=== PATIENT | female | born 1990 | race Caucasian/White ===

== ENCOUNTER 2016-08-18 17:18 | Emergency (ER) | payer OTHER ==
--- NOTE | 2016-08-18 19:09 | ED ---
ENT HPI - General Chief complaint: ENT Stated complaint: sore throat Time Seen by Provider: 08/18/16 18:13 Source: patient, RN notes reviewed Mode of arrival: ambulatory Limitations: no limitations - History of Present Illness Initial comments: Patient is a 25-year-old female with chief complaint of sore throat for the past 3 days. She reports that her throat is very swollen and difficult to swallow.. She denies any significant cough. She states that she's taken some tpyo-upx-clxvixl cough syrup and mouthwash to help with the pain however it has not helped. She denies any Motrin or Tylenol. Patient denies any recent fever , chills, shortness of breath, chest pain, back pain, abdominal pain, nausea vomiting, numbness or tingling, dysuria or hematuria, constipation or diarrhea, headaches or visual changes, or any other current symptoms - Related Data Previous Rx's Medication Instructions Recorded Amoxicillin 500 mg PO Q12HR #20 cap 08/18/16 Allergies Allergy/AdvReac Type Severity Reaction Status Date / Time Fish Containing Products Allergy Swelling Verified 08/18/16 17:56 [Fish] Review of Systems ROS Statement: Those systems with pertinent positive or pertinent negative responses have been documented in the HPI. ROS Other: All systems not noted in ROS Statement are negative. Past Medical History Past Medical History: No Reported History History of Any Multi-Drug Resistant Organisms: None Reported Additional Past Surgical History / Comment(s): kidney/ bladder surgeryureteral surgery, D&C Past Anesthesia/Blood Transfusion Reactions: No Reported Reaction Past Psychological History: No Psychological Hx Reported Smoking Status: Current every day smoker Past Alcohol Use History: None Reported Past Drug Use History: None Reported - Past Family History Mother Family Medical History: No Reported History General Exam - General Exam Comments Initial Comments: Well-appearing 25-year-old female. No acute distress. Limitations: no limitations General appearance: alert, in no apparent distress Head exam: Present: atraumatic, normocephalic, normal inspection Eye exam: Present: normal appearance, PERRL, EOMI. Absent: scleral icterus, conjunctival injection, periorbital swelling ENT exam: Present: normal exam, mucous membranes moist. Absent: normal oropharynx (Erythematous beefy red tonsils. Evidence of exudate.) Neck exam: Present: normal inspection. Absent: tenderness, meningismus, lymphadenopathy Respiratory exam: Present: normal lung sounds bilaterally. Absent: respiratory distress, wheezes, rales, rhonchi, stridor Cardiovascular Exam: Present: regular rate, normal rhythm, normal heart sounds. Absent: systolic murmur, diastolic murmur, rubs, gallop, clicks GI/Abdominal exam: Present: soft, normal bowel sounds. Absent: distended, tenderness, guarding, rebound, rigid Extremities exam: Present: normal inspection, full ROM, normal capillary refill. Absent: tenderness, pedal edema, joint swelling, calf tenderness Back exam: Present: normal inspection Neurological exam: Present: alert, oriented X3, CN II-XII intact Psychiatric exam: Present: normal affect, normal mood Skin exam: Present: warm, dry, intact, normal color. Absent: rash Course Vital Signs 08/18/16 08/18/16 17:54 19:33 Temperature 99.3 F 99.6 F Pulse Rate 99 95 Respiratory 16 18 Rate Blood Pressure 125/70 116/86 O2 Sat by Pulse 99 98 Oximetry Medical Decision Making - Medical Decision Making Patient is a 25-year-old female. With chief complaint of sore throat for 3 days. Patient had a positive rapid strep screen. Patient was given an initial dose of amoxicillin in the emergency room. Patient was given a prescription as well. Motrin Tylenol for fevers. Return parameters were discussed. Patient understands treatment plan will comply. - Lab Data Lab Results 08/18/16 Range/Units 18:57 Group A Strep Rapid Positive A (Negative) Disposition Clinical Impression: Strep pharyngitis Disposition: HOME SELF-CARE Condition: Good Instructions: Strep Throat (ED) Additional Instructions: Rest, increase fluids and complete her antibiotic prescription. Follow-up with primary care provider if symptoms continue persist. Return to the EC if any signs or symptoms occur. Prescriptions: Amoxicillin 500 mg PO Q12HR #20 cap Referrals: Brenda Garcia MD [REFERRING] - 1-2 days Time of Disposition: 19:20
[2016-08-18] MEDS ORDERED: AMOXICILLIN 500MG STARTER PACK 3 CAP BTL PO STA (19:19)
[2016-08-18 19:34] VITALS: BP 116/86; PULSE 95; RESP 18; TEMP 99.6
== END 2016-08-18 19:32 | disposition home or self-care (01) ==
LOC: EC 17:18
DX: J02.0 Streptococcal pharyngitis (principal); Z91.013 Allergy to seafood; F17.200 Nicotine dependence, unspecified, uncomplicated
CPT/HCPCS: 87430; 99283

== ENCOUNTER 2017-07-05 19:28 | Emergency (ER) | payer OTHER ==
[2017-07-05] MEDS ORDERED: ACETAMINOPHEN TAB 325 MG TAB PO STA (20:32)
[2017-07-05 21:29] LABS: Appearance,Urine Cloudy (Clear); Bilirubin,Urine Negative (Negative); Blood,Urine Negative (Negative); Color,Urine Yellow; Glucose,Urine (UA) Negative (Negative); Ketones,Urine Negative (Negative); Leukocyte Esterase,Urine Negative (Negative); Mucus,Urine Rare /hpf; Nitrite,Urine Negative (Negative); PH, Urine 5.5 (5.0-8.0); Protein,Urine Trace (Negative); RBC,Urine 1 /hpf (0-5); Specific Gravity,Urine 1.014 (1.001-1.035); Squamous Epithelial Cell,Urine 3 /hpf (0-4); Urobilinogen,Urine <2.0 mg/dL (<2.0); WBC,Urine 5 /hpf (0-5)
--- NOTE | 2017-07-05 22:13 | US ---
EXAMINATION TYPE: US OB <=14 wks transvag DATE OF EXAM: 07/05/2017 COMPARISON: 05/09/2017 CLINICAL HISTORY: Pain. Pain EXAM PERFORMED: Transvaginal (TV) and Transabdominal (TA) EXAM MEASUREMENTS: GESTATIONAL AGE / DATING Physician Established: Not yet established Dates by LMP: LMP unknown Dates by First Scan: (7 weeks/3 days) EDC: 12/23/2017 Dates by Current Scan for: (6 weeks/5 days) MATERNAL ANATOMY Uterus: 11.9 x 5.1 x 5.5 cm Right Ovary: 3.0 x 2.3 x 2.7 cm Left Ovary: 3.5 x 1.7 x 2.0 cm Post CDS / Adnexa: wnl Presence of free fluid: no GESTATION / SURVEY CRL: 0.79 (6 weeks/5 days) Heart Rate: No heart tones Rhythm: None IUP: Demise Beta HcG (if available): Not available at this time Patient was seen back on 05/09/2017 for an ultrasound at 7 wks 3days and no heart tones were se en. Patient has had no further exams or lab work done. Exam today is showing an irregular shaped gest ational sac with a pole measuring 6wks 5 days with no heart tones. IMPRESSION: There is intrauterine demise at approximately 7 weeks gestation. No significant change compared to 05/09/2017 exam. 1.5 cm left ovarian cyst.
--- NOTE | 2017-07-05 22:34 | ED ---
General Adult HPI - General Chief complaint: Recheck/Abnormal Lab/Rx Stated complaint: Headache x3 Time Seen by Provider: 07/05/17 20:05 Source: patient Mode of arrival: ambulatory Limitations: no limitations - History of Present Illness Initial comments: 26-year-old female patient presents to the emergency department today requesting ultrasound. The patient states that at the beginning of May she was seen here, had an ultrasound and was diagnosed with demise. She had an ultrasound performed that showed no heart tones, she was educated regarding miscarriage and what to expect. Patient states that she still has not passed any tissue. She denies any vaginal bleeding, vaginal discharge , or abdominal cramping since having the ultrasound at the beginning of May. She is concerned that maybe the ultrasound was either wrong or that she is retaining the products. She denies any current pain, fever, chills , nausea, vomiting. Denies any difficulty with urination or bowel movements. States that she has been trying to follow-up with OB for further evaluation. She states that she did call Dr. Faith's office today and was instructed to obtain labs. She states is still have not made an appointment for her. Patient denies any recent rash, shortness breath, chest pain, diarrhea, constipation, back pain, numbness, tingling, dizziness, weakness, hematuria, dysuria, urinary urgency, urinary frequency, visual changes, or any other complaints. - Related Data Home Medications Medication Instructions Recorded Confirmed No Known Home Medications [No 05/09/17 07/05/17 Known Home Medications] Allergies Allergy/AdvReac Type Severity Reaction Status Date / Time Fish Containing Products Allergy Swelling Verified 07/05/17 20:15 [Fish] Review of Systems ROS Statement: Those systems with pertinent positive or pertinent negative responses have been documented in the HPI. ROS Other: All systems not noted in ROS Statement are negative. Past Medical History Past Medical History: No Reported History History of Any Multi-Drug Resistant Organisms: None Reported Past Surgical History: Bladder Surgery Additional Past Surgical History / Comment(s): kidney/ bladder surgeryureteral surgery, D&C Past Anesthesia/Blood Transfusion Reactions: No Reported Reaction Past Psychological History: No Psychological Hx Reported Smoking Status: Current some day smoker Past Alcohol Use History: None Reported Past Drug Use History: None Reported - Past Family History Mother Family Medical History: No Reported History General Exam Limitations: no limitations General appearance: alert, in no apparent distress, other (Physical well- developed, well-nourished adult female patient in no acute distress. Vital signs upon presentation are temperature 98.5F, pulse 97, respirations 18, blood pressure 119/76, pulse ox 97% on room air.) Eye exam: Present: normal appearance, PERRL, EOMI. Absent: scleral icterus, conjunctival injection, periorbital swelling ENT exam: Present: normal exam, normal oropharynx, mucous membranes moist Respiratory exam: Present: normal lung sounds bilaterally. Absent: respiratory distress, wheezes, rales, rhonchi, stridor Cardiovascular Exam: Present: regular rate, normal rhythm, normal heart sounds. Absent: systolic murmur, diastolic murmur, rubs, gallop, clicks GI/Abdominal exam: Present: soft, normal bowel sounds. Absent: distended, tenderness, guarding, rebound, rigid Neurological exam: Present: alert, oriented X3, CN II-XII intact Psychiatric exam: Present: normal affect, normal mood Skin exam: Present: warm, dry, intact, normal color. Absent: rash Course Vital Signs 07/05/17 07/05/17 19:47 23:34 Temperature 98.5 F 98 F Pulse Rate 97 82 Respiratory 18 18 Rate Blood Pressure 119/76 128/78 O2 Sat by Pulse 97 97 Oximetry Medical Decision Making - Medical Decision Making 26-year-old female patient presented to the emergency department today for concern for retained products of conception. Physical examination is unremarkable. Abdomen is soft and nontender. She is urinating and having bowel movements without difficulty. Patient was initially told at the beginning of May that she was miscarrying and was to expect passage of blood and cramping. She had none of those things and presented here due to this. Repeat ultrasound was obtained and did show an irregular gestational sac with no heart tones. HCG level is 40. Urinalysis was negative for any acute abnormalities. Patient has been in contact with Dr. Faith's office. As she is not having any symptoms at this time, is afebrile, and stable we will discharge her home to follow-up with him outpatient. I did instruct her to call his office tomorrow for an appointment. She is instructed to return here immediately for any new, worsening, or concerning symptoms. She verbalizes understanding and agrees with this plan. - Lab Data Lab Results 07/05/17 07/05/17 Range/Units 21:14 22:29 HCG, Quant 40.1 mIU/mL Urine Color Yellow Urine Appearance Cloudy H (Clear) Urine pH 5.5 (5.0-8.0) Ur Specific [place] 1.014 (1.001-1.035) Urine Protein Trace H (Negative) Urine Glucose (UA) Negative (Negative) Urine Ketones Negative (Negative) Urine Blood Negative (Negative) Urine Nitrite Negative (Negative) Urine Bilirubin Negative (Negative) Urine Urobilinogen <2.0 (<2.0) mg/dL Ur Leukocyte Esterase Negative (Negative) Urine RBC 1 (0-5) /hpf Urine WBC 5 (0-5) /hpf Ur Squamous Epith Cells 3 (0-4) /hpf Urine Mucus Rare H (None) /hpf - Radiology Data Radiology results: report reviewed, image reviewed Ultrasound of the pelvis does show intrauterine demise at approximately 7 weeks gestation. No significant change compared to 05/09/2017 exam. There is a 1.5 cm left ovarian cyst. Impression is by Dr. Granados. Disposition Clinical Impression: demise, Retained products of conception Disposition: HOME SELF-CARE Condition: Good Instructions: Miscarriage (ED) Additional Instructions: Follow-up with Dr. Faith as soon as possible. Return here immediately for any new, worsening, or concerning symptoms. Referrals: None,Stated [Primary Care Provider] - 1-2 days Time of Disposition: 23:27
[2017-07-05 23:36] VITALS: BP 128/78; PULSE 82; RESP 18; TEMP 98
== END 2017-07-05 23:34 | disposition home or self-care (01) ==
LOC: EC 19:28
DX: O02.89 Other abnormal products of conception (principal); O34.81 Maternal care for other abnormalities of pelvic organs, first trimester; N83.202 Unspecified ovarian cyst, left side; O99.331 Smoking (tobacco) complicating pregnancy, first trimester; F17.200 Nicotine dependence, unspecified, uncomplicated; Z91.013 Allergy to seafood; Z98.890 Other specified postprocedural states; Z3A.01 Less than 8 weeks gestation of pregnancy
CPT/HCPCS: 36415; 76801; 76817; 81001; 84702; 99284

== ENCOUNTER → 2017-07-10 | Outpatient (CLI) | payer OTHER | END | disposition home or self-care (01) | LOC: LABWHC1 10:39 | PROVIDERS: ATTEND Obstetrics & Gynecology | DX: Z34.80 Encounter for supervision of other normal pregnancy, unspecified trimester (principal) | CPT/HCPCS: 36415; 84702 ==

== ENCOUNTER → 2017-07-12 | Outpatient (CLI) | payer OTHER ==
[2017-07-12 12:22] LABS: Basophils % (A) 1 %; Eosinophils # (A) 0.1 k/uL (0-0.7); Eosinophils % (A) 3 %; HCT 41.3 % (34.0-46.0); HGB 13.8 gm/dL (11.4-16.0); Lymphocytes # (A) 1.3 k/uL (1.0-4.8); Lymphocytes % (A) 25 %; MCH 28.7 pg (25.0-35.0); MCHC 33.3 g/dL (31.0-37.0); MCV 86.1 fL (80.0-100.0); Mean Platelet Volume 7.9; Monocytes # (A) 0.3 k/uL (0-1.0); Monocytes % (A) 5 %; Neutrophils # (A) 3.7 k/uL (1.3-7.7); Neutrophils % (A) 67 %; Platelet Count 174 k/uL (150-450); RDW 13.2 % (11.5-15.5); WBC 5.5 k/uL (3.8-10.6)
== END | disposition home or self-care (01) ==
LOC: LABPAT 10:53
PROVIDERS: ATTEND Obstetrics & Gynecology
DX: Z01.818 Encounter for other preprocedural examination (principal)
CPT/HCPCS: 36415; 85025

== ENCOUNTER 2017-07-13 08:18 | Day surgery (SDC) | payer OTHER ==
[2017-07-12 09:56] VITALS: BMI 23.3
--- NOTE | 2017-07-13 07:57 | P.HPOB ---
History of Present Illness H&P Date: 07/13/17 Chief Complaint: Missed AB Claritza is a 26-year-old female 5 para 3 who had a positive in May 2017 with a beta in 40,000 but no cardiac activity. She did not follow up with our office at that time but believed that she was going to have a miscarriage on her own based on what the emergency room informed her. However it is been 2 months and she is still not have any bleeding. Ultrasound again reveals a 6 week sac no pole with a beta hCG of 40. A repeat was done showing no significant elevation 2 days later. Due to the fact she has had no bleeding and has persistent on ultrasound and beta hCG, she is scheduled for a suction D&C for missed AB. Risks/benefits/alternatives to this procedure were discussed with the patient in detail and all questions are answered for her prior to proceeding to the operating room. On physical exam vital signs are stable and she is afebrile. Heart regular, lungs clear, extremities without pain. Osteopathic exam is unremarkable. Pelvic exam is otherwise unremarkable. Assessment missed AB. Plan suction D&C. Past Medical History Past Medical History: No Reported History Additional Past Medical History / Comment(s): missed AB History of Any Multi-Drug Resistant Organisms: None Reported Past Surgical History: Bladder Surgery Additional Past Surgical History / Comment(s): kidney/ bladder surgeryureteral surgery, D&C Past Anesthesia/Blood Transfusion Reactions: No Reported Reaction Smoking Status: Current every day smoker - Past Family History Mother Family Medical History: No Reported History Medications and Allergies Home Medications Medication Instructions Recorded Confirmed Type No Known Home Medications [No 05/09/17 07/12/17 History Known Home Medications] Allergies Allergy/AdvReac Type Severity Reaction Status Date / Time Fish Containing Products Allergy Swelling Verified 07/12/17 09:29 [Fish] Exam Osteopathic Statement: *. No significant issues noted on an osteopathic structural exam other than those noted in the History and Physical/Consult.
[~2017-07-13 08:18] MED LIST: DEXAMETHASONE SOD PHOSPHATE 10 MG/ML 1 ML VIAL IV ONE; HYDROmorphone 0.5 MG/0.5 ML SYRINGE IVP PRN; LACTATED RINGERS 1,000 ML IV SCH; LIDOCAINE 1% 20 ML VIAL (10MG/ML) FOR IV START INTRADERMA PRN; ONDANSETRON 4 MG/2 ML VIAL IVP ONE; Pre Op ABX Message 1 EACH MISC MISCELLANE ONE; SCOPOLAMINE 1.5MG/72HR PATCH TRANSDERM ONE
[2017-07-13] MEDS: MIDAZOLAM 2 MG/2 ML VIAL IV PRN ×2 (08:55→09:00)
[2017-07-13] MEDS ORDERED: fentaNYL (PF) 50 MCG/ML 2 ML AMP ONE (09:33)
[2017-07-13] MEDS ORDERED: PROPOFOL 10 MG/ML 20 ML VIAL IV ONE (09:33)
[2017-07-13] MEDS ORDERED: LIDOCAINE 1% INJ 10MG/ML (20 ML MDV) ONE (09:33)
[2017-07-13] MEDS ORDERED: MIDAZOLAM 2 MG/2 ML VIAL ONE (09:33)
--- NOTE | 2017-07-13 10:00 | P.OP ---
Date of Procedure: 07/13/17 Preoperative Diagnosis: Missed AB Postoperative Diagnosis: Same Procedure(s) Performed: Suction D&C Anesthesia: NIKKIA Surgeon: Jaime Faith Estimated Blood Loss (ml): 50 Pathology: other (Products of conception) Condition: stable Disposition: same day Description of Procedure: Patient was taken to the operating suite where a general anesthetic was found be adequate. She was prepped and draped in the normal sterile fashion placed in dorsal lithotomy position. Initially a speculum was inserted into the vagina and the anterior lip of the cervix was identified and grasped with a single-tooth tenaculum. Cervix was then dilated. Using an 8 mm curved tip suction catheter it was placed and then suction was applied. She is noted to have a retroverted uterus. Moving in a clockwise motion 3 passes were made with removal of tissue. Once this was completed gentle sharp curettings of endometrium were obtained to maintain make sure there was no other Tissue present one last pass with the suction tip catheter was then done no significant bleeding is noted the conclusion of the procedure instruments are removed sponge, lap, needle counts were correct 2. Patient was then taken to the recovery room in stable and satisfactory condition. Plan - Discharge Summary New Discharge Prescriptions: New Ibuprofen [Motrin] 600 mg PO Q6HR PRN #30 tab PRN Reason: Pain Discharge Medication List Ibuprofen [Motrin] 600 mg PO Q6HR PRN #30 tab 07/13/17 [Rx] Follow up Appointment(s)/Referral(s): Jaime Faith DO [Doctor of Osteopathic Medicine] - 1 Week Activity/Diet/Wound Care/Special Instructions: Attending limit stairs and driving and pelvic rest. If any high temperatures, heavy bleeding, or severe pain call my office Discharge Disposition: HOME SELF-CARE
[2017-07-13 10:08] VITALS: TEMP 97.8
[2017-07-13] MEDS ORDERED: KETOROLAC 30 MG/ML 1 ML VIAL IVP ONE (10:09)
[2017-07-13 11:11] VITALS: RESP 16
[2017-07-13 11:36] VITALS: BP 112/69; PULSE 61
== END 2017-07-13 11:45 | disposition home or self-care (01) ==
LOC: OR 08:18
PROVIDERS: ATTEND Obstetrics & Gynecology
DX: O02.1 Missed abortion (principal); O99.331 Smoking (tobacco) complicating pregnancy, first trimester; F17.200 Nicotine dependence, unspecified, uncomplicated; Z3A.01 Less than 8 weeks gestation of pregnancy; Z91.013 Allergy to seafood
CPT/HCPCS: 59820; 86900; 86901; 88305; 86850; J2791; J2250; J1100; J2405; J2001; J3010; J1885; J2704; 36415; 85025

== ENCOUNTER → 2018-06-04 | Outpatient (CLI) | payer OTHER ==
[2018-06-04 13:51] LABS: HCT 35.3 % (34.0-46.0); HGB 12.3 gm/dL (11.4-16.0); MCH 29.2 pg (25.0-35.0); MCHC 34.9 g/dL (31.0-37.0); MCV 83.8 fL (80.0-100.0); Mean Platelet Volume 7.4; Platelet Count 200 k/uL (150-450); RBC 4.21 m/uL (3.80-5.40); RDW 12.8 % (11.5-15.5); WBC 5.8 k/uL (3.8-10.6)
[2018-06-04 19:20] LABS: T4, Free (Free Thyroxine) 1.1 ng/dL (0.80-1.80)
[2018-06-04 22:30] LABS: T3, Uptake 17 % (23-37)
[2018-06-05 05:02] LABS: HIV 1 AB Non-Reactive (Non-Reactive); HIV AB P24 Non-Reactive (Non-Reactive); HIV P24 AG Non-Reactive (Non-Reactive)
== END ==
LOC: LABWHC1 13:10
PROVIDERS: ATTEND Obstetrics & Gynecology
DX: Z34.81 Encounter for supervision of other normal pregnancy, first trimester (principal); Z3A.00 Weeks of gestation of pregnancy not specified
CPT/HCPCS: 36415; 82565; 82947; 84439; 84443; 84479; 85027; 86762; 86780; 86850; 86900; 86901; 87340; 87390

== ENCOUNTER → 2018-09-05 | Outpatient (CLI) | payer OTHER ==
[2018-09-05 14:34] LABS: HCT 33.4 % (34.0-46.0); HGB 11.3 gm/dL (11.4-16.0); MCV 88.4 fL (80.0-100.0); Mean Platelet Volume 8.7; RBC 3.78 m/uL (3.80-5.40); RDW 13.6 % (11.5-15.5); WBC 8.4 k/uL (3.8-10.6)
[2018-09-05 14:39] LABS: Platelet Count 67 k/uL (150-450)
== END ==
LOC: LABWHC1 12:46
PROVIDERS: ATTEND Obstetrics & Gynecology
DX: Z34.82 Encounter for supervision of other normal pregnancy, second trimester (principal)
CPT/HCPCS: 36415; 82950; 85027; 86850

== ENCOUNTER 2018-11-23 18:15 | Inpatient (IN) | payer OTHER ==
[2018-11-23] MEDS ORDERED: ceFAZolin IN SWFI 2 GM/20 ML SYRINGE IVP ONE (19:37)
[2018-11-23] MEDS ORDERED: CITRIC ACID-SODIUM CITRATE 15 ML CUP PO ONE (19:37)
[2018-11-23] MEDS ORDERED: LACTATED RINGERS 1,000 ML IV ONE (19:37)
[2018-11-23 20:08] LABS: Basophils % (A) 0 %; Eosinophils # (A) 0.1 k/uL (0-0.7); Eosinophils % (A) 1 %; HCT 37.6 % (34.0-46.0); HGB 12.7 gm/dL (11.4-16.0); Lymphocytes # (A) 1.4 k/uL (1.0-4.8); Lymphocytes % (A) 17 %; MCH 29.3 pg (25.0-35.0); MCHC 33.8 g/dL (31.0-37.0); MCV 86.7 fL (80.0-100.0); Mean Platelet Volume 11.6; Monocytes # (A) 0.3 k/uL (0-1.0); Monocytes % (A) 4 %; Neutrophils # (A) 6.4 k/uL (1.3-7.7); Neutrophils % (A) 76 %; RBC 4.34 m/uL (3.80-5.40); RDW 14.7 % (11.5-15.5); WBC 8.3 k/uL (3.8-10.6)
--- NOTE | 2018-11-23 20:14 | US ---
EXAMINATION TYPE: US OB limited DATE OF EXAM: 11/23/2018 COMPARISON: NONE CLINICAL HISTORY: questionable breech at 38 weeks. Baby position. EXAM PERFORMED: Transabdominal (TA) GESTATIONAL AGE / DATING Physician Established: (37 weeks/6 days) EDC: 12/08/2018 No growth performed on today?s study per ordering physician PRESENTATION: Breech HEART RATE: 132 bpm RHYTHM: Normal Two digital images from the examination were stored. IMPRESSION: Breech position confirmed.
[2018-11-23 20:35] LABS: INR 0.8 (<1.2); Partial Thromboplastin Time 25.4 sec (22.0-30.0); Prothrombin Time 9.3 sec (9.0-12.0)
[2018-11-23] MEDS ORDERED: LACTATED RINGERS 1,000 ML BAG IV ONE (20:42)
[2018-11-23] MEDS ORDERED: MORPHINE SULFATE (PF) 0.3 MG/0.3 ML SYR ONE (20:42)
[2018-11-23] MEDS ORDERED: ONDANSETRON 4 MG/2 ML VIAL ONE (20:42)
[2018-11-23] MEDS ORDERED: OXYTOCIN 10 UNIT/ML 1 ML VIAL ONE (20:42)
[2018-11-23] MEDS ORDERED: PHENYLEPHRINE-0.9% NACL SYG 1 MG/10 ML SYRINGE ONE (20:42)
[2018-11-23] MEDS ORDERED: KETOROLAC 30 MG/ML 1 ML VIAL ONE (20:42)
[2018-11-23 20:44] LABS: Large Platelets Present; Platelet Count 96 k/uL (150-450)
[2018-11-23] MEDS ORDERED: diphenhydrAMINE 50 MG CAP PO PRN (21:48)
[2018-11-23] MEDS ORDERED: NALOXONE 0.4 MG/ML 1 ML VIAL IV PRN (21:48)
[2018-11-23] MEDS ORDERED: SIMETHICONE 80 MG CHEWABLE PO PRN (21:48)
[2018-11-23] MEDS ORDERED: ONDANSETRON 4 MG/2 ML VIAL IVP PRN (21:48)
[2018-11-23] MEDS ORDERED: ZOLPIDEM 5 MG TAB PO PRN (21:48)
[2018-11-23] MEDS ORDERED: ACETAMINOPHEN TAB 325 MG TAB PO PRN (21:48)
[2018-11-23] MEDS ORDERED: diphenhydrAMINE 50 MG/ML 1 ML VIAL IVP PRN ×2 (21:48)
[2018-11-23] MEDS ORDERED: IBUPROFEN 600 MG TAB PO PRN (21:48)
[2018-11-23] MEDS ORDERED: METOCLOPRAMIDE 5 MG/ML 2 ML VIAL IVP PRN (21:48)
[2018-11-23] MEDS ORDERED: KETOROLAC 30 MG/ML 1 ML VIAL IVP PRN (21:48)
[2018-11-23] MEDS ORDERED: diphenhydrAMINE 25 MG CAP PO PRN (21:48)
--- NOTE | 2018-11-23 21:53 | P.HPOB ---
History of Present Illness H&P Date: 11/23/18 Chief Complaint: Intrauterine at term: Breech: Oligohydramnios Claritza is a 28-year-old who arrives for a primary section due to breech presentation and oligohydramnios. She was supposed to be seen today in the office but left because I was not in the office. She however following leaving the office began having sharp contractions that were becoming more regular even up to every 2-3 minutes. She came to labor and delivery where a very 1 tracing was noted but she was dilated to 1 and not engaged. She had previously had a transverse position for the baby and so a repeat ultrasound was ordered. Baby at this time is in breech footling presentation however, there is oligohydramnios with no pockets greater than 1 cm in any of the quadrants. It is unclear if she is ruptured preoperative previously to this. We'll plan primary low-transverse section as at she has completed her family a tubal occlusion will be performed as well. The Precis course was, complicated by idiopathic thrombocytopenia. She did see hematology as her platelets got as low as 67. They did have her on steroids and this seemed to improve her platelets somewhat. Today her platelets are 96. Pertinent labs include O- blood type, Rh antibody was negative, rubella immune, hepatitis B surface antigen and RPR and HIV were all negative. GBS is pending. Past Medical History Past Medical History: No Reported History Additional Past Medical History / Comment(s): missed AB History of Any Multi-Drug Resistant Organisms: None Reported Past Surgical History: Bladder Surgery Additional Past Surgical History / Comment(s): kidney/ bladder surgeryureteral surgery, D&C Past Anesthesia/Blood Transfusion Reactions: No Reported Reaction Smoking Status: Current every day smoker - Past Family History Mother Family Medical History: No Reported History Medications and Allergies Allergies Allergy/AdvReac Type Severity Reaction Status Date / Time Fish Containing Products Allergy Swelling Verified 07/13/17 08:31 [Fish] Exam Osteopathic Statement: *. No significant issues noted on an osteopathic structural exam other than those noted in the History and Physical/Consult. Vital Signs Temp Pulse Resp BP Pulse Ox 11/23/18 18:59 98.2 F 105 H 18 124/75 97 Intake and Output 11/23/18 11/23/18 11/23/18 06:59 14:59 22:59 Other: Weight 69.853 kg - OBG Physical Exam Breast: both: normal (no masses) Abdomen: bowel sounds normal, no diffuse tenderness, no bruit present, no gu arding noted, no hepatomegaly, no splenomegaly, no mass Vulva: both: normal Vagina: normal moisture, no discharge Cervix: no lesion, no discharge Uterus: normal size, normal contour Adnexa: both: normal Anus/Rectum: normal perianal skin, no rectal mass, no hemorrhoids, heme negative Results Result Diagrams: 11/23/18 19:36 Abnormal Lab Results - Last 24 Hours (Table) 11/23/18 Range/Units 19:36 Plt Count 96 L (150-450) k/uL
[2018-11-23 21:58] VITALS: BMI 27.3
--- NOTE | 2018-11-23 21:59 | P.OP ---
Date of Procedure: 11/23/18 Preoperative Diagnosis: Intrauterine at term: Breech presentation: Oligohydramnios: Family planning Postoperative Diagnosis: Same Procedure(s) Performed: Primary low transverse section with tubal occlusion by Filshie clip Anesthesia: spinal Surgeon: Jaime Faith Transfer Machine Operator #1: Lior Win Estimated Blood Loss (ml): 800 IV fluids (ml): 1,000 Urine output (ml): 400 Pathology: other (Placenta) Condition: stable Disposition: floor Operative Findings: Female 's of 8 and 9 at one and 5 minutes respectively and a weight of 5 lbs. 7 oz. Was noted that the placenta was very ratty in did have some significant adherence, difficult states there was a placenta accreta or that it simply wasn't coming out is readily as we would normally expect. Placenta is sent to pathology Description of Procedure: Patient was taken to the operating suite where a spinal anesthetic was found be adequate. She was prepped and draped in the normal sterile fashion and placed in dorsal supine position with leftward tilt. Initially a Pfannenstiel skin incision was made, this incision was then carried through to the underlying layer of the fashion with second knife the fascia was nicked in the midline. This opening was extended laterally with Lester scissors and superior and inferior aspect of this incision were then grasped, tented up, and bluntly and sharply dissected off the rectus muscles. Rectus muscles were then divided midline and blunt dissection through the peritoneum was made. This opening was then extended superiorly and inferiorly with good visualization of both bowel bladder. Bladder blade was then placed and the bladder flap identified, was entered with Metzenbaum scissors and carried across face the uterus with the same Metzenbaum scissors and the bladder flap was digitally created. Knife was then used to incise uterus, there was a significant amount of vascularity anteriorly slates incision was made slightly right of midline and a little higher due to significant vascularity. Once incision was made it was fully developed with hemostat and then extended bluntly. Double footling breech was then noted and baby was delivered without difficulty with gentle downward traction in the arms were swept across face prior to delivery of the head but head was easily delivered. Mouth nares were then bulb suctioned and the umbilical cord was allowed to pulsate for 30-40 seconds following delivery due to the small size of the baby. Umbilical cord was then clamped cut usual fashion and cord blood was collected. Once this was completed placenta was then delivered intact however as noted previously it was very adherent to the fundal region and did take some manual separation. Following inspection and cleaning of the uterine lining no further pieces of placenta could be identified. Uterus was then reapproximated in 2 layers with 0 Vicryl suture. There was an area in the left corner that had some bleeding and was having some bleeding within broad ligament despite attempts at obtaining hemostasis with 0 Vicryl suture there was still some oozing immediately below the incision line and therefore FloSeal was used to obtain excellent hemostasis. Once hemostasis was fully obtained blood and debris was suctioned from the posterior cul-de-sac. Uterus was then reinserted into the abdomen and the peritoneal layer was reapproximated with 3-0 Vicryl. 0 Vicryl suture was then used to reapproximate the fascial layer one layer of 3-0 Vicryl placed in deep subcuticular tissues to reapproximate the skin and close the space. Skin was then closed with karson. Sponge, lap, needle counts were all correct 2. Patient was then taken to the recovery room in stable and satisfactory condition.
[2018-11-23] MEDS: LACTATED RINGERS 1,000 ML IV SCH (22:38)
[2018-11-24] MEDS: LACTATED RINGERS 1,000 ML IV SCH ×3 (02:58→23:07)
[2018-11-24 06:40] LABS: Basophils % (A) 0 %; Eosinophils % (A) 1 %; HCT 30.9 % (34.0-46.0); HGB 10.3 gm/dL (11.4-16.0); Lymphocytes # (A) 1.1 k/uL (1.0-4.8); Lymphocytes % (A) 17 %; MCH 28.6 pg (25.0-35.0); MCHC 33.2 g/dL (31.0-37.0); MCV 86.3 fL (80.0-100.0); Mean Platelet Volume 10.2; Monocytes # (A) 0.2 k/uL (0-1.0); Monocytes % (A) 3 %; Neutrophils # (A) 5.1 k/uL (1.3-7.7); Neutrophils % (A) 78 %; RBC 3.59 m/uL (3.80-5.40); RDW 14.7 % (11.5-15.5); WBC 6.5 k/uL (3.8-10.6)
[2018-11-24 06:41] LABS: Platelet Count 86 k/uL (150-450)
[2018-11-24] MEDS ORDERED: Rhogam IMMUNE GLOBULIN 1,500 UNIT/1 ML IM ONE (06:53)
[2018-11-24] MEDS: SENNOSIDES-DOCUSATE SODIUM 1 EACH TAB PO SCH ×2 (08:00→23:07)
--- NOTE | 2018-11-24 10:14 | P.PNOBGPC ---
Subjective - Subjective Principal diagnosis: Postop day 1 Interval history: Claritza is doing very well. She is ambulating and passing flatus and tolerating a diet. She only recently had her [place] removed so she is not voided yet. Otherwise she is feeling well. Patient reports: Reports appetite normal, Reports voiding normally, Reports pain well controlled, Reports ambulating normally [place]: doing well Objective - Vital Signs Latest vital signs: Vital Signs Temp Pulse Resp BP Pulse Ox 11/24/18 08:00 98.5 F 70 18 102/66 95 11/24/18 04:00 98.2 F 93 16 109/62 96 11/24/18 00:00 98.0 F 74 16 116/74 11/23/18 23:35 74 16 116/74 11/23/18 23:05 68 16 112/67 11/23/18 22:35 75 16 96/59 11/23/18 22:20 63 16 97/56 11/23/18 22:05 82 16 98/60 11/23/18 21:50 71 16 103/59 11/23/18 21:35 97.6 F 73 16 98/50 98 11/23/18 18:59 98.2 F 105 H 18 124/75 97 Intake and Output 11/23/18 11/24/18 11/24/18 22:59 06:59 14:59 Intake Total 1000 Output Total 2000 800 Balance -1000 -800 Intake: IV 1000 Output: Urine 400 800 Uretheral ([place]) 200 Estimated Blood Loss 1600 Other: Weight 69.853 kg - Exam Lungs: bilateral: normal Chest: Normal S1, Normal S2 Extremities: Present: normal Abdomen: Present: normal appearance, soft. Absent: distention, tenderness Incision: Present: normal, dry, intact Uterus: Present: normal, firm - Labs Labs: Abnormal Lab Results - Last 24 Hours (Table) 11/23/18 11/24/18 Range/Units 19:36 06:16 RBC 3.59 L (3.80-5.40) m/uL Hgb 10.3 L (11.4-16.0) gm/dL Hct 30.9 L (34.0-46.0) % Plt Count 96 L 86 L (150-450) k/uL
[2018-11-24] MEDS: HYDROcodone/APAP 7.5-325MG 1 EACH TAB PO PRN ×2 (16:24→23:05)
[2018-11-25] MEDS: LACTATED RINGERS 1,000 ML IV SCH ×3 (00:06→00:08)
[2018-11-25] MEDS: HYDROcodone/APAP 7.5-325MG 1 EACH TAB PO PRN ×3 (07:00→21:32)
--- NOTE | 2018-11-25 10:08 | P.PNOBGPC ---
Subjective - Subjective Principal diagnosis: Postop day 2 Interval history: Overall Claritza is doing very well postop day 2. She is involuting, voiding and she is tolerating her diet. She voices no complaints. Vital signs stable and afebrile. Heart regular, lungs clear, extremities without pain. Abdomen soft nontender in her incision is clean dry and intact. Baby is however in special care nursery and will therefore not be ready to go home today. Patient reports: Reports appetite normal [place]: doing well Objective - Vital Signs Latest vital signs: Vital Signs Temp Pulse Resp BP Pulse Ox 11/24/18 23:20 98.4 F 100 16 108/70 96 11/24/18 20:00 98.6 F 86 16 111/63 11/24/18 16:00 99.0 F 81 18 113/68 98 11/24/18 12:00 98.8 F 77 18 104/63 97 Intake and Output 11/24/18 11/25/18 11/25/18 22:59 06:59 14:59 Output Total 500 Balance -500 Output: Urine 500 Other: # Voids 1 3
[2018-11-25] MEDS: SENNOSIDES-DOCUSATE SODIUM 1 EACH TAB PO SCH (10:59)
[2018-11-25 12:31] VITALS: RESP 18
[2018-11-25 18:30] VITALS: BP 109/61; PULSE 86; TEMP 99.2
--- NOTE | 2018-11-25 19:08 | P.DS ---
Providers Date of admission: 11/23/18 19:53 Expected date of discharge: 11/25/18 Attending physician: Jaime Faith Primary care physician: Stated None Hospital Course: Charlotte is doing very well still. She is voicing no complaints and the baby has been discharge and she is requesting same. Discharged patient home in stable and satisfactory condition with instructions to follow up with me in 1 week. We'll remove karson today prescriptions for pain medication been provided and all the questions were answered for her prior to this. Discharge instructions were thoroughly reviewed earlier today and she will be discharged home in stable and satisfactory condition. Patient Condition at Discharge: Good Plan - Discharge Summary Discharge Rx Participant: No New Discharge Prescriptions: New Ibuprofen [Motrin] 600 mg PO Q6HR PRN #30 tab PRN Reason: Pain HYDROcodone/APAP 5-325MG [[place] 5-325] 1 tab PO Q4HR PRN #30 tab PRN Reason: Pain Discharge Medication List HYDROcodone/APAP 5-325MG [[place] 5-325] 1 tab PO Q4HR PRN #30 tab 11/25/18 [Rx] Ibuprofen [Motrin] 600 mg PO Q6HR PRN #30 tab 11/25/18 [Rx] Follow up Appointment(s)/Referral(s): Jaime Faith DO [Doctor of Osteopathic Medicine] - 1 Week Activity/Diet/Wound Care/Special Instructions: No heavy lifting, limit stairs and driving, and pelvic rest. If any high temperatures, heavy bleeding, or severe pain call my office Discharge Disposition: HOME SELF-CARE
--- NOTE | 2018-11-27 06:35 | P.PN ---
Progress Note - Text Progress Note Date: 11/26/18 postop duramorph spinal rounds patient denies any headaches or weakness vitals within normal limits, pain as expected anesthesia spinal without complications primary team to manage
== END 2018-11-25 21:45 | disposition home or self-care (01) | DRG 787 ==
LOC: FBPOP 18:15 → 4FBP 19:53
PROVIDERS: ADMIT Obstetrics & Gynecology; ATTEND Obstetrics & Gynecology
PROC: 10D00Z1 Extraction of Products of Conception, Low, Open Approach (ICD-10-PCS; principal; 2018-11-23 20:16)
DX: O32.8XX0 Maternal care for other malpresentation of fetus, not applicable or unspecified (principal); O41.03X0 Oligohydramnios, third trimester, not applicable or unspecified; D69.3 Immune thrombocytopenic purpura; O99.12 Other diseases of the blood and blood-forming organs and certain disorders involving the immune mechanism complicating childbirth; O99.334 Smoking (tobacco) complicating childbirth; Z91.013 Allergy to seafood; F17.200 Nicotine dependence, unspecified, uncomplicated; O43.213 Placenta accreta, third trimester; Z37.0 Single live birth
CPT/HCPCS: 76815; 85025; 85461; 85610; 85730; 86850; 86900; 86901; 88307

== ENCOUNTER 2020-09-19 10:19 | Emergency (ER) | payer OTHER ==
[2020-09-19 10:26] VITALS: BP 125/79; PULSE 100; RESP 16; TEMP 98.2
[2020-09-19] MEDS ORDERED: IBUPROFEN 600 MG TAB PO STA (10:43)
[2020-09-19] MEDS ORDERED: LIDOCAINE 5% PATCH TOPICAL SCH (10:45)
--- NOTE | 2020-09-19 10:46 | ED ---
Back Pain HPI - General Chief Complaint: Back Pain/Injury Stated Complaint: body aches Time Seen by Provider: 09/19/20 10:29 Source: patient, RN notes reviewed Mode of arrival: ambulatory Limitations: no limitations - History of Present Illness Initial Comments: 29-year-old well-appearing white female patient presents to the emergency room with 1 year of low back pain that has not received relief from [id number] Tylenol or Motrin. Patient relates it to a she had 2 years ago. Patient has not sought medical care for this pain and states does not have a family practice doctor. Patient states nothing makes it better or worse. Patient states did fall off a scooter approximately 6 months ago onto her butt but denies any other traumatic injury, patient states this pain has been for over one year. Patient states pain goes up into back on palpation. Patient denies any bowel or bladder problems patient denies stating she had tubal ligation 2 years ago. Patient denies any abdominal pain, nausea, vomiting, diarrhea or fever. MD Complaint: back pain -: year(s) (1) Similar Symptoms Previously: Yes Radiation: other (upper back) Severity: moderate Severity scale (1-10): 6 Quality: sharp Consistency: constant Improves With: none Worsens With: movement, other (palpation to lumbar spine) Context: unknown (thinks related to 2 years ago) Associated Symptoms: denies other symptoms Treatments Prior to Arrival: NSAIDS (some relief), acetaminophen - Related Data Home Medications Medication Instructions Recorded Confirmed Acetaminophen Tab [Tylenol] 1,300 mg PO HS@199909/19/20 09/19/20 Previous Rx's Medication Instructions Recorded Lidocaine 5% Patch [Lidoderm] 1 patch TOPICAL DAILY #6 patch 09/19/20 Allergies Allergy/AdvReac Type Severity Reaction Status Date / Time Fish Containing Products Allergy Anaphylaxis Verified 09/19/20 11:09 [Fish] Review of Systems ROS Statement: Those systems with pertinent positive or pertinent negative responses have been documented in the HPI. ROS Other: All systems not noted in ROS Statement are negative. Past Medical History Past Medical History: No Reported History Additional Past Medical History / Comment(s): missed AB History of Any Multi-Drug Resistant Organisms: None Reported Past Surgical History: Bladder Surgery Additional Past Surgical History / Comment(s): kidney/ bladder surgeryureteral surgery, D&C Past Anesthesia/Blood Transfusion Reactions: No Reported Reaction Past Psychological History: No Psychological Hx Reported Smoking Status: Current every day smoker Past Alcohol Use History: None Reported Past Drug Use History: None Reported - Past Family History Mother Family Medical History: No Reported History General Exam Limitations: no limitations General appearance: alert, in no apparent distress Head exam: Present: atraumatic, normocephalic, normal inspection Eye exam: Present: normal appearance, PERRL, EOMI. Absent: scleral icterus, conjunctival injection, periorbital swelling Pupils: Present: normal accommodation ENT exam: Present: normal exam, mucous membranes moist Neck exam: Present: normal inspection, full ROM. Absent: tenderness, meningismus, lymphadenopathy Respiratory exam: Present: normal lung sounds bilaterally. Absent: respiratory distress, wheezes, rales, rhonchi, stridor Cardiovascular Exam: Present: regular rate, normal rhythm, normal heart sounds. Absent: systolic murmur, diastolic murmur, rubs, gallop, clicks, JVD GI/Abdominal exam: Present: soft, normal bowel sounds. Absent: distended, tenderness, guarding, rebound, rigid Extremities exam: Present: normal inspection, full ROM, normal capillary refill. Absent: tenderness, pedal edema, joint swelling, calf tenderness Back exam: Present: tenderness (tenderness with direct palpation of lumbar spine, states pain goes up back), vertebral tenderness (point tenderness to lumbar spine, no deformities noted, elevation of left leg causes increased pain, but does not radiate down leg, 4-5 lower extremity strength with dorsiflexion and plantarflexion) Neurological exam: Present: alert, oriented X3, CN II-XII intact, normal gait Psychiatric exam: Present: normal affect, normal mood Skin exam: Present: warm, dry, intact, normal color. Absent: rash Course Vital Signs 09/19/20 10:23 Temperature 98.2 F Pulse Rate 100 Respiratory 16 Rate Blood Pressure 125/79 O2 Sat by Pulse 100 Oximetry Medical Decision Making - Medical Decision Making Patient presents with 1 year of low back pain denies recent injury. Patient is able to ambulate without assistance. Patient seated on the stretcher in no distress. Point tenderness to the lumbar spine noted no muscle spasms. There is no different bony deformity, no CVA tenderness, no saddle anesthesia, patient able to stand erect. There is no urinary or bowel incontinence. Patient with good dorsi and plantar flexion at lower extremity strength. Radiculopathy in lower back noted with the straight leg test on the left. Case discussed with Dr. Arce, Pt to follow up with primary care doctor with a prescription for Lidoderm patches. - Lab Data Lab Results 09/19/20 09/19/20 Range/Units 10:40 10:40 Urine Color Yellow Urine Appearance Clear (Clear) Urine pH 5.5 (5.0-8.0) Ur Specific [place] 1.018 (1.001-1.035) Urine Protein Negative (Negative) Urine Glucose (UA) Negative (Negative) Urine Ketones Negative (Negative) Urine Blood Negative (Negative) Urine Nitrite Negative (Negative) Urine Bilirubin Negative (Negative) Urine Urobilinogen <2.0 (<2.0) mg/dL Ur Leukocyte Esterase Negative (Negative) Urine HCG, Qual Not Detected (Not Detectd) Disposition Clinical Impression: Chronic back pain Disposition: HOME SELF-CARE Condition: Good Instructions (If sedation given, give patient instructions): Acute Low Back Pain (ED) Additional Instructions: Use [id number] Motrin and Tylenol for pain in addition to the Lidoderm patches were scribed today. Follow-up with a primary care doctor. Prescriptions: Lidocaine 5% Patch [Lidoderm] 1 patch TOPICAL DAILY #6 patch Is patient prescribed a controlled substance at d/c from ED?: No Referrals: None,Stated [Primary Care Provider] - 1-2 days Time of Disposition: 11:17
[2020-09-19] MEDS ORDERED: LIDOCAINE 5% PATCH TOPICAL PRN (10:49)
[2020-09-19 10:59] LABS: Appearance,Urine Clear (Clear); Bilirubin,Urine Negative (Negative); Blood,Urine Negative (Negative); Color,Urine Yellow; Glucose,Urine (UA) Negative (Negative); Ketones,Urine Negative (Negative); Leukocyte Esterase,Urine Negative (Negative); Nitrite,Urine Negative (Negative); PH, Urine 5.5 (5.0-8.0); Protein,Urine Negative (Negative); Specific Gravity,Urine 1.018 (1.001-1.035); Urobilinogen,Urine <2.0 mg/dL (<2.0)
== END 2020-09-19 11:21 | disposition home or self-care (01) ==
LOC: EC 10:19
DX: M54.5 Low back pain (principal); G89.29 Other chronic pain; F17.200 Nicotine dependence, unspecified, uncomplicated; Z91.013 Allergy to seafood
CPT/HCPCS: 81003; 81025; 99283

== ENCOUNTER 2023-10-21 20:57 | Emergency (ER) | payer OTHER ==
--- NOTE | 2023-10-21 21:42 | ED ---
General Adult HPI <Adeel Alas - Last Filed: 10/22/23 14:23> - General Source: patient, RN notes reviewed, old records reviewed Mode of arrival: ambulatory Limitations: no limitations <Roger Vazquez - Last Filed: 10/23/23 08:10> - General Chief complaint: Psychiatric Symptoms Stated complaint: Mental health Time Seen by Provider: 10/21/23 21:32 - History of Present Illness Initial comments: Is a 33-year-old female who presents emergency department complaining of suicidal ideations. Has a history of depression. Has been compliant with medications. States that they seem not to be working. Has long history of depression per patient and lately seems to be having intermittent thoughts of suicidal ideations without any specific plans or attempts. No history of attempts in the past. No homicidal ideations, plans, times, as well as no hallucinations at this time. Denies any drug use. Presents for further evaluation. Denies any chest pain, shortness of breath, abdominal pain. No fevers, chills, cough. States she does have a therapist who she last on Monday. (Roger Vazquez) - Related Data Home Medications Medication Instructions Recorded Confirmed Acetaminophen Tab [Tylenol] 1,300 mg PO HS@199909/19/20 09/19/20 Previous Rx's Medication Instructions Recorded Lidocaine 5% Patch [Lidoderm] 1 patch TOPICAL DAILY #6 patch 09/19/20 Allergies Allergy/AdvReac Type Severity Reaction Status Date / Time Fish Containing Products Allergy Anaphylaxis Verified 10/21/23 21:12 [Fish] Review of Systems ROS Other: All systems not noted in ROS Statement are negative. <dAeel Alas - Last Filed: 10/22/23 14:23> ROS Other: All systems not noted in ROS Statement are negative. <Roger Vazquez - Last Filed: 10/23/23 08:10> ROS Statement: Those systems with pertinent positive or pertinent negative responses have been documented in the HPI. Review of Systems: CONST: Denies fever EYES: Denies blurry vision ENT: Denies nasal congestion C/V: Denies Chest pain RESP: Denies shortness of breath GI: Denies abdominal pain : Denies dysuria SKIN: Denies rash. MSK: Denies joint pain. NEURO: Denies headache (Roger Vazquez) Past Medical History Past Medical History: No Reported History Additional Past Medical History / Comment(s): missed AB History of Any Multi-Drug Resistant Organisms: None Reported Past Surgical History: Bladder Surgery Additional Past Surgical History / Comment(s): kidney/ bladder surgeryureteral surgery, D&C Past Anesthesia/Blood Transfusion Reactions: No Reported Reaction Past Psychological History: Depression Smoking Status: Vaper Past Alcohol Use History: None Reported Past Drug Use History: None Reported - Past Family History Mother Family Medical History: No Reported History <Roger Vazquez - Last Filed: 10/23/23 08:10> General Exam Limitations: no limitations <Roger Vazquez - Last Filed: 10/23/23 08:10> - General Exam Comments Initial Comments: General: Appears in no acute distress. HEAD: Normal with no signs of head trauma. EYES: PERRLA, EOMI ENT: Hearing grossly intact, normal oropharynx. RESPIRATORY: Clear breath sounds bilaterally. No wheezes, rales, or rhonchi. C/V: Regular rate and rhythm. S1 and S2 auscultated ABD: Abd is soft, nontender, nondistended EXT: no obvious deformity SKIN: No rashes or lesions observed on exposed skin. NEURO: Alert and oriented x 4. No focal deficits. (Roger Vazquez) Course Vital Signs 10/21/23 10/22/23 10/22/23 21:10 09:30 14:28 Temperature 97.8 F 98.0 F 97.9 F Pulse Rate 82 80 84 Respiratory 18 20 20 Rate Blood Pressure 123/84 128/78 136/58 O2 Sat by Pulse 98 98 98 Oximetry Medical Decision Making <Adeel Alas - Last Filed: 10/22/23 14:23> <Roger Vazquez - Last Filed: 10/23/23 08:10> - Medical Decision Making Patient care signed out to me by previous shift physician, Dr. Vazquez. Patient pending EPS evaluation. Patient was medically cleared prior to signout. EPS evaluated patient recommended discharge with outpatient follow-up. Patient reevaluated bedside stable medical condition. Diagnosis/symptom? @ -Suicidal ideation Acute, or Chronic, or Acute on Chronic? @ -Default Uncomplicated (without systemic symptoms) or Complicated (systemic symptoms)? @ -Default Side effects of treatment? @ -None Exacerbation, Progression, or Severe Exacerbation] @ -No Poses a threat to life or bodily function? @ -yes (Adeel Alas) Was pt. sent in by a medical professional or institution (, PA, TRANSMISSION SUPERINTENDENT, urgent care, hospital, or longterm...) When possible be specific @ -No Did you speak to anyone other than the patient for history (EMS, parent, family, police, friend...)? What history was obtained from this source @ -No Did you review nursing and triage notes (agree or disagree)? Why? @ -I reviewed and agree with nursing and triage notes Were old charts reviewed (outside hosp., previous admission, EMS record, old EKG, old radiological studies, urgent care reports/EKG's, longterm records)? Report findings @ -Old charts reviewed Differential Diagnosis (chest pain, altered mental status, abdominal pain women, abdominal pain men, vaginal bleeding, weakness, fever, dyspnea, syncope, headache, dizziness, GI bleed, back pain, seizure, CVA, palpatations, mental health, musculoskeletal)? @ -Differential Mental Health Depression, anxiety, bipolar, psychosis, schizophrenia, borderline personality, situational depression, adjustment disorder, behavioral disorder, brain tumor, malingering, substance abuse, encephalopathy, medication reaction, dementia, hypothyroidism, degenerative neurologic disorder, lupus.... This is not meant to be all-inclusive list EKG interpreted by me (3pts min.). @ -None done X-rays interpreted by me (1pt min.). @ -None done CT interpreted by me (1pt min.). @ -None done U/S interpreted by me (1pt. min.). @ -None done What testing was considered but not performed or refused? (CT, X-rays, U/S, labs)? Why? @ -None What meds were considered but not given or refused? Why? @ -None Did you discuss the management of the patient with other professionals (professionals i.e. , PA, TRANSMISSION SUPERINTENDENT, lab, RT, psych nurse, social science analyst, family lawyer, teacher, medical information officer, dependency case manager)? Give summary @ -EPS notified of the consult. Was smoking cessation discussed for >3mins.? @ -No Was critical care preformed (if so, how long)? @ -No Were there social determinants of health that impacted care today? How? (Homelessness, low income, unemployed, alcoholism, drug addiction, transportation, low edu. Level, literacy, decrease access to med. care, custodial, rehab)? @ -No Was there de-escalation of care discussed even if they declined (Discuss DNR or withdrawal of care, Hospice)? DNR status @ -No What co-morbidities impacted this encounter? (DM, HTN, Smoking, COPD, CAD, Cancer, CVA, ARF, Chemo, Hep., AIDS, mental health diagnosis, sleep apnea, morbid obesity)? @ -None Was patient admitted / discharged? Hospital course, mention meds given and route, prescriptions, significant lab abnormalities, going to OR and other pertinent info. @ -Based on the patient's presentation and physical exam, presents emergency department complaining of suicidal ideations. Has a history of depression. States she thinks her medications need to be adjusted. No specific plans or attempts. This has been ongoing for what sounds like a while but worse over the last few days to week. Vital signs are within acceptable limits. She was placed in green scrubs. Suicide precautions ordered. Sitter ordered. BAT is 0. UDS is pending. At this time, patient is medically cleared for evaluation by psychiatry. Disposition pending psychiatric evaluation. Following my shift, patient eventually discharged home with a safety plan. Did not meet criteria for inpatient psychiatric admission. Undiagnosed new problem with uncertain prognosis? @ -No Drug Therapy requiring intensive monitoring for toxicity (Heparin, Nitro, Insulin, Cardizem)? @ -No Were any procedures done? @ -No Diagnosis/symptom? @ -Encounter for psychiatric evaluation, suicidal ideations Acute, or Chronic, or Acute on Chronic? @ -Acute Uncomplicated (without systemic symptoms) or Complicated (systemic symptoms)? @ -Uncomplicated Side effects of treatment? @ -None Exacerbation, Progression, or Severe Exacerbation] @ -No Poses a threat to life or bodily function? @ -No (Roger Vazquez) - Lab Data Lab Results 10/21/23 Range/Units 21:47 Urine Opiates Screen Not Detected (NotDetected) Ur Oxycodone Screen Not Detected (NotDetected) Urine Methadone Screen Not Detected (NotDetected) Ur Barbiturates Screen Not Detected (NotDetected) U Tricyclic Antidepress Not Detected (NotDetected) Ur Phencyclidine Scrn Not Detected (NotDetected) Ur Amphetamines Screen Not Detected (NotDetected) U Methamphetamines Scrn Not Detected (NotDetected) U Benzodiazepines Scrn Not Detected (NotDetected) Urine Cocaine Screen Not Detected (NotDetected) U Marijuana (THC) Screen Not Detected (NotDetected) Disposition Is patient prescribed a controlled substance at d/c from ED?: No Time of Disposition: 14:23 <Adeel Alas - Last Filed: 10/22/23 14:23> <Roger Vazquez - Last Filed: 10/23/23 08:10> Clinical Impression: Suicidal ideation Disposition: HOME SELF-CARE Condition: Good Instructions (If sedation given, give patient instructions): Help Prevent Suicide (ED) Referrals: None,Stated [Primary Care Provider] - 1-2 days
[2023-10-21 22:31] LABS: Amphetamine Screen,Urine Not Detected (NotDetected); Barbiturate Screen,Urine Not Detected (NotDetected); Benzodiazepines Screen,Urine Not Detected (NotDetected); Cocaine Screen,Urine Not Detected (NotDetected); Methadone Screen, Urine Not Detected (NotDetected); Opiate Screen,Urine Not Detected (NotDetected); Oxycodone Screen, Urine Not Detected (NotDetected); Phencyclidine Screen,Urine Not Detected (NotDetected); Tricyclic Antidepressant,Urine Not Detected (NotDetected); Urn Cannabinoid Scrn Not Detected (NotDetected)
[2023-10-22 15:00] VITALS: BP 136/58; PULSE 84; RESP 20; TEMP 97.9
== END 2023-10-22 14:28 | disposition home or self-care (01) ==
LOC: EC 20:57
DX: R45.851 Suicidal ideations (principal); F17.290 Nicotine dependence, other tobacco product, uncomplicated; Z91.013 Allergy to seafood
CPT/HCPCS: 80306; 82075; 99285

== ENCOUNTER 2024-03-30 14:33 | Emergency (ER) | payer OTHER ==
--- NOTE | 2024-03-30 15:19 | ED ---
General Adult HPI - General Chief complaint: Shortness of Breath Stated complaint: Oral issue Time Seen by Provider: 03/30/24 15:05 Source: patient, RN notes reviewed, old records reviewed Mode of arrival: ambulatory Limitations: no limitations - History of Present Illness Initial comments: 3-year-old female presenting for evaluation of pale lips patient states she looked in the mirror today and thought that her lips looked pale. She googled this and was concerned that this could be related to anemia. She denies bleeding, denies rectal bleeding, denies heavy vaginal bleeding. Denies dyspnea. States she has been fatigued for some time. - Related Data Home Medications Medication Instructions Recorded Confirmed Acetaminophen Tab [Tylenol] 1,300 mg PO HS@199909/19/20 09/19/20 Previous Rx's Medication Instructions Recorded Lidocaine 5% Patch [Lidoderm] 1 patch TOPICAL DAILY #6 patch 09/19/20 Allergies Allergy/AdvReac Type Severity Reaction Status Date / Time Fish Containing Products Allergy Anaphylaxis Verified 03/30/24 14:38 [Fish] Review of Systems ROS Statement: Those systems with pertinent positive or pertinent negative responses have been documented in the HPI. ROS Other: All systems not noted in ROS Statement are negative. Past Medical History Past Medical History: No Reported History Additional Past Medical History / Comment(s): missed AB History of Any Multi-Drug Resistant Organisms: None Reported Past Surgical History: Bladder Surgery Additional Past Surgical History / Comment(s): kidney/ bladder surgeryureteral surgery, D&C Past Anesthesia/Blood Transfusion Reactions: No Reported Reaction Past Psychological History: No Psychological Hx Reported Smoking Status: Current every day smoker Past Alcohol Use History: None Reported Past Drug Use History: None Reported - Past Family History Mother Family Medical History: No Reported History General Exam Limitations: no limitations General appearance: alert, in no apparent distress Head exam: Present: atraumatic, normocephalic Eye exam: Present: normal appearance, PERRL Neck exam: Present: normal inspection. Absent: tenderness Respiratory exam: Present: normal lung sounds bilaterally. Absent: respiratory distress, wheezes Cardiovascular Exam: Present: regular rate, normal rhythm GI/Abdominal exam: Present: soft. Absent: distended, tenderness, guarding Neurological exam: Present: alert, oriented X3 Psychiatric exam: Present: flat affect Skin exam: Present: warm, dry, intact Course Vital Signs 09/28/24 14:35 Temperature 97.9 F Pulse Rate 89 Respiratory 15 Rate Blood Pressure 118/81 O2 Sat by Pulse 100 Oximetry Medical Decision Making - Medical Decision Making Was pt. sent in by a medical professional or institution (VANIA Pruett, GIRLS SWIMMING COACH, urgent care, hospital, or penitentiary...) When possible be specific @ -No Did you speak to anyone other than the patient for history (EMS, parent, family, police, friend...)? What history was obtained from this source @ -No Did you review nursing and triage notes (agree or disagree)? Why? @ -I reviewed and agree with nursing and triage notes Were old charts reviewed (outside hosp., previous admission, EMS record, old EKG, old radiological studies, urgent care reports/EKG's, penitentiary records)? Report findings @ -No old charts were reviewed Differential Diagnosis, anemia, chapped lips @ -Not applicable EKG interpreted by me (3pts min.). @ -As above X-rays interpreted by me (1pt min.). @ -None done CT interpreted by me (1pt min.). @ -None done U/S interpreted by me (1pt. min.). @ -None done What testing was considered but not performed or refused? (CT, X-rays, U/S, labs)? Why? @ -None What meds were considered but not given or refused? Why? @ -None Did you discuss the management of the patient with other professionals (professionals i.e. VANIA Pruett, GIRLS SWIMMING COACH, lab, RT, psych nurse, social worker palliative care, cost reduction engineer, teacher, sales and service officer, patient case coordinator)? Give summary @ -No Was smoking cessation discussed for >3mins.? @ -No Was critical care preformed (if so, how long)? @ -No Were there social determinants of health that impacted care today? How? (Homelessness, low income, unemployed, alcoholism, drug addiction, transportation, low edu. Level, literacy, decrease access to med. care, halfway, rehab)? @ -No Was there de-escalation of care discussed even if they declined (Discuss DNR or withdrawal of care, Hospice)? DNR status @ -No What co-morbidities impacted this encounter? (DM, HTN, Smoking, COPD, CAD, Cancer, CVA, ARF, Chemo, Hep., AIDS, mental health diagnosis, sleep apnea, morbid obesity)? @ -None Was patient admitted / discharged? Hospital course, mention meds given and route , prescriptions, significant lab abnormalities, going to OR and other pertinent info. @ - 33 yo Female who believes her lips look pale. The patient's lips do not appear significantly pale. I did obtain CBC as this was the patient's primary concern. Hemoglobin was 13.5. Patient is reassured. Undiagnosed new problem with uncertain prognosis? @ -No Drug Therapy requiring intensive monitoring for toxicity (Heparin, Nitro, Insulin, Cardizem)? @ -No Were any procedures done? @ -No Diagnosis/symptom? @ -chapped lips Acute, or Chronic, chronic? @ -Default Uncomplicated (without systemic symptoms) or Complicated (systemic symptoms)? @ -Default Side effects of treatment? @ -No Exacerbation, Progression, or Severe Exacerbation? @ -No Poses a threat to life or bodily function? How? (Chest pain, USA, AR, pneumonia, PE, COPD, DKA, ARF, appy, cholecystitis, CVA, Diverticulitis, Homicidal, Suicidal, threat to staff... and all critical care pts) @ -No - Lab Data Result diagrams: 03/30/24 15:12 Lab Results 03/30/24 Range/Units 15:12 WBC 6.5 (3.8-10.6) k/uL RBC 4.56 (3.80-5.40) m/uL Hgb 13.5 (11.4-16.0) gm/dL Hct 39.4 (34.0-46.0) % MCV 86.3 (80.0-100.0) fL MCH 29.5 (25.0-35.0) pg MCHC 34.2 (31.0-37.0) g/dL RDW 12.9 (11.5-15.5) % Plt Count 259 (150-450) k/uL MPV 7.6 Neutrophils % 75 % Lymphocytes % 17 % Monocytes % 5 % Eosinophils % 1 % Basophils % 0 % Neutrophils # 4.9 (1.3-7.7) k/uL Lymphocytes # 1.1 (1.0-4.8) k/uL Monocytes # 0.4 (0-1.0) k/uL Eosinophils # 0.1 (0-0.7) k/uL Basophils # 0.0 (0-0.2) k/uL Disposition Clinical Impression: Chapped lips Disposition: HOME SELF-CARE Condition: Good Is patient prescribed a controlled substance at d/c from ED?: No Referrals: None,Stated [Primary Care Provider] - 1-2 days Time of Disposition: 16:00
[2024-03-30 15:51] LABS: Basophils % (A) 0 %; Eosinophils # (A) 0.1 k/uL (0-0.7); Eosinophils % (A) 1 %; HCT 39.4 % (34.0-46.0); HGB 13.5 gm/dL (11.4-16.0); Lymphocytes # (A) 1.1 k/uL (1.0-4.8); Lymphocytes % (A) 17 %; MCH 29.5 pg (25.0-35.0); MCHC 34.2 g/dL (31.0-37.0); MCV 86.3 fL (80.0-100.0); Mean Platelet Volume 7.6; Monocytes # (A) 0.4 k/uL (0-1.0); Monocytes % (A) 5 %; Neutrophils # (A) 4.9 k/uL (1.3-7.7); Neutrophils % (A) 75 %; Platelet Count 259 k/uL (150-450); RBC 4.56 m/uL (3.80-5.40); RDW 12.9 % (11.5-15.5); WBC 6.5 k/uL (3.8-10.6)
[2024-03-30 16:29] VITALS: BP 99/68; PULSE 71; RESP 18; TEMP 98.1
== END 2024-03-30 16:28 | disposition home or self-care (01) ==
LOC: EC 14:33
CPT/HCPCS: 36415; 85025; 99284